=== PATIENT | male | born 2000 | race Two or more races ===

== ENCOUNTER 2023-07-27 09:22 | Emergency (ER) | payer OTHER ==
[2023-07-27 11:30] VITALS: BP 150/60; PULSE 80; RESP 19; TEMP 98.2; O2SAT 96
== END 2023-07-27 12:24 | disposition home or self-care (01) ==
LOC: ER 09:22
DX: S33.5XXA Sprain of ligaments of lumbar spine, initial encounter (principal); X50.1XXA Overexertion from prolonged static or awkward postures, initial encounter; Y93.89 Activity, other specified; Y92.89 Other specified places as the place of occurrence of the external cause; Y99.8 Other external cause status